=== PATIENT | male | born 1940 | race Hispanic/Latino ===

== ENCOUNTER 2018-07-03 07:53 | Inpatient (IN) | payer MEDICARE ==
[~2018-07-03] VITALS: Ht 175.3 cm; Wt 107.3 kg
[~2018-07-03 07:53] MED LIST: DABI150C PO; DILT240C94 PO; FURO20TA4 PO; GABA-531 PO; METO50TA18 PO; OMEP40CA37 PO; TAMS0.4C32 PO
[2018-07-03 08:14] LABS: BASOPHILS % (AUTO) 0.9 % (0.0-5.0); EOSINOPHILS % (AUTO) 1.8 % (0.0-8.0); LYMPHOCYTES % (AUTO) 11.7 % (21.0-51.0); MEAN CORPUSCULAR HEMOGLOBIN 26.6 pg (27.0-33.0); MEAN CORPUSCULAR HGB CONC 32.6 g/dL (32.0-36.0); MEAN CORPUSCULAR VOLUME 81.6 fL (79-99); MONOCYTES % (AUTO) 3.8 % (3.0-13.0); NEUTROPHILS % (AUTO) 81.8 % (40.0-77.0); NUCLEATED RED BLOOD CELLS 0.1 % (0.0-0.19); PLATELET COUNT (AUTO) 274 K/uL (130-400); RED BLOOD CELL COUNT(AUTO) 3.93 MIL/uL (4.50-6.20); RED CELL DISTRIBUTION WIDTH 16.3 % (11.0-15.5); WHITE BLOOD COUNT (AUTO) 8.7 K/uL (4.8-10.8)
[2018-07-03 08:25] LABS: POTASSIUM 3.7 mmol/L (3.5-5.1)
[2018-07-03 08:27] LABS: INR 1.14 (0.85-1.15); PROTHROMBIN TIME 11.9 SEC (9.6-11.6)
[2018-07-03 08:30] LABS: BILIRUBIN,TOTAL 0.6 mg/dL (0.2-1.0)
[2018-07-03 08:43] LABS: B-TYPE NATRIURETIC PEPTIDE 406 pg/mL (0-100)
[2018-07-03 08:57] LABS: APPEARANCE,URINE Clear (CLEAR); BILIRUBIN,URINE Negative (NEGATIVE); COLOR,URINE Yellow (YELLOW); GLUCOSE, URINE (UA) Negative (NEGATIVE); KETONES,URINE Negative (NEGATIVE); LEUKOCYTE ESTERASE ,URINE Trace (NEGATIVE); NITRATE,URINE Negative (NEGATIVE); OCCULT BLOOD,URINE Trace (NEGATIVE); PROTEIN,URINE Trace (NEGATIVE)
[2018-07-03 09:47] LABS: BACTERIA,URINE Rare /HPF (None Seen); HYALINE CASTS, URINE 0-1 /LPF (0-1 /LPF); MUCUS,URINE Rare LPF (None Seen); SQUAMOUS EPITHELIAL CELL,UR Rare /HPF (0-2); WBC,URINE 0-1 /HPF (0-1)
[2018-07-03 11:50] VITALS: BP 140/89
[2018-07-03] MEDS ORDERED: FUROSEMIDE 10 MG/ML 2ML VIAL IVP SCH (13:00)
[2018-07-03] MEDS ORDERED: POTA-79 PO (14:56)
[2018-07-03] MEDS ORDERED: MEGE40TA2 PO (14:56)
[2018-07-03] MEDS ORDERED: TRAM50TA4 PO (14:56)
[2018-07-03] MEDS ORDERED: CEFT1PIG6 IV (14:56)
[2018-07-03] MEDS ORDERED: SIME80TA12 PO (14:56)
[2018-07-03] MEDS ORDERED: VANC750F2 IV (14:56)
[2018-07-03 16:00] VITALS: BP 149/80
[2018-07-03] MEDS ORDERED: FUROSEMIDE 20 MG TABLET PO SCH (16:30)
[2018-07-03] MEDS ORDERED: FUROSEMIDE 10 MG/ML 2ML VIAL ONE (16:40)
[2018-07-03] MEDS ORDERED: GABAPENTIN 300 MG CAPSULE ONE (16:41)
[2018-07-03] MEDS ORDERED: DILTIAZEM HCL 120 MG CAP.SR.24H PO ONE (16:41)
[2018-07-03] MEDS ORDERED: SOD CHLORIDE IV SCH (16:45)
[2018-07-03] MEDS ORDERED: SIMETHICONE 80 MG TAB.CHEW PO PRN (16:45)
[2018-07-03] MEDS ORDERED: [UNRECOGNIZED DRUG - OTHER] IV SCH (16:45)
[2018-07-03] MEDS ORDERED: VANCOMYCIN IV SCH (16:45)
[2018-07-03] MEDS: FUROSEMIDE 10 MG/ML 2ML VIAL IV SCH (16:45)
[2018-07-03] MEDS ORDERED: COMPOUND IV REFRIGERATED 1 EACH IVSOLN MISC PRN (17:15)
[2018-07-03] MEDS: VANCOMYCIN 750MG + NS 250 ML IV SCH ×2 (19:14)
[2018-07-03] MEDS: CEFTAZIDIME PENTAHYDRATE 1 GM/VIAL IVP SCH (19:14)
[2018-07-03 19:55] VITALS: BP 145/90
[2018-07-03] MEDS: METOPROLOL TARTRATE 50 MG TAB PO SCH (21:22)
[2018-07-03] MEDS: GABAPENTIN 300 MG CAPSULE PO SCH (21:22)
[2018-07-03] MEDS: DABIGATRAN ETEXILATE MESYLATE 150 MG CAPSULE PO SCH (21:22)
[2018-07-03] MEDS ORDERED: ONDANSETRON HCL MDV 20ML 2 MG/ML VIAL IVP PRN (21:30)
[2018-07-03] MEDS ORDERED: ONDANSETRON HCL 4 MG/2 ML VIAL ONE (21:33)
[2018-07-03] MEDS ORDERED: VANCOMYCIN PROTOCOL PER PHARMACY IV SCH (22:30)
[2018-07-03] MEDS ORDERED: LORAZEPAM 0.5 MG TABLET PO PRN (22:30)
[2018-07-03 23:00] VITALS: BP 99/65
[2018-07-04] MEDS: CEFTAZIDIME PENTAHYDRATE 1 GM/VIAL IVP SCH ×3 (01:33→17:02)
[2018-07-04 04:17] VITALS: BP 122/69
[2018-07-04] MEDS: FUROSEMIDE 10 MG/ML 2ML VIAL IV SCH ×2 (05:06→17:02)
[2018-07-04 05:42] LABS: BASOPHILS % (AUTO) 1.2 % (0.0-5.0); EOSINOPHILS % (AUTO) 3.6 % (0.0-8.0); LYMPHOCYTES % (AUTO) 18.4 % (21.0-51.0); MEAN CORPUSCULAR HEMOGLOBIN 26.3 pg (27.0-33.0); MEAN CORPUSCULAR HGB CONC 32.6 g/dL (32.0-36.0); MEAN CORPUSCULAR VOLUME 80.6 fL (79-99); MONOCYTES % (AUTO) 5.6 % (3.0-13.0); NEUTROPHILS % (AUTO) 71.2 % (40.0-77.0); PLATELET COUNT (AUTO) 255 K/uL (130-400); RED BLOOD CELL COUNT(AUTO) 3.85 MIL/uL (4.50-6.20); RED CELL DISTRIBUTION WIDTH 16.1 % (11.0-15.5); WHITE BLOOD COUNT (AUTO) 6.6 K/uL (4.8-10.8)
[2018-07-04 05:51] LABS: POTASSIUM 3.5 mmol/L (3.5-5.1)
[2018-07-04] MEDS: VANCOMYCIN 750MG + NS 250 ML IV SCH ×2 (06:17)
[2018-07-04 07:00] VITALS: BP 127/92
[2018-07-04] MEDS ORDERED: COMPOUND IV REFRIGERATED 1 EACH IVSOLN MISC PRN (07:00)
[2018-07-04] MEDS: MEGESTROL ACETATE 40 MG PO SCH (09:00)
[2018-07-04] MEDS ORDERED: ALTEPLASE 2 MG/2 ML IVCATH SCH (09:00)
[2018-07-04] MEDS: PANTOPRAZOLE SODIUM 40 MG TABLET.DR PO SCH (09:03)
[2018-07-04] MEDS: GABAPENTIN 300 MG CAPSULE PO SCH ×3 (09:03→22:06)
[2018-07-04] MEDS: POTASSIUM CHLORIDE 20 MEQ ERTAB PO SCH (09:04)
[2018-07-04] MEDS: DILTIAZEM HCL 120 MG CAP.SR.24H PO SCH (09:05)
[2018-07-04] MEDS: TRAMADOL HCL 50 MG TABLET PO PRN (09:09)
[2018-07-04] MEDS: TAMSULOSIN HCL 0.4 MG CAP.ER.24H PO SCH (09:09)
[2018-07-04] MEDS: METOPROLOL TARTRATE 50 MG TAB PO SCH ×2 (09:10→22:06)
[2018-07-04] MEDS: DABIGATRAN ETEXILATE MESYLATE 150 MG CAPSULE PO SCH ×2 (09:11→22:06)
[2018-07-04] MEDS: VANCOMYCIN 1.5 GM in SODIUM CHLORIDE 0.9% 250 ML IV SCH ×2 (09:22→22:06)
[2018-07-04 11:00] VITALS: BP 103/60
[2018-07-04 16:00] VITALS: BP 107/71
[2018-07-04] MEDS ORDERED: POTASSIUM CHLORIDE 10% ELIXIR 20 MEQ/15 ML UDCUP PO PRN (17:00)
[2018-07-04] MEDS ORDERED: POTASSIUM CHLORIDE 20MEQ/100ML 100 ML IV PRN (17:00)
[2018-07-04] MEDS ORDERED: LIDOCAINE HCL-MPF 1% 2ML VIAL IVP PRN (17:00)
[2018-07-04] MEDS: POTASSIUM CHLORIDE 20 MEQ ERTAB PO PRN (18:50)
[2018-07-04 19:00] VITALS: BP 104/73
[2018-07-05] VITALS: BP 115/86
[2018-07-05] MEDS: CEFTAZIDIME PENTAHYDRATE 1 GM/VIAL IVP SCH ×3 (00:17→17:54)
[2018-07-05 04:00] VITALS: BP 105/75
[2018-07-05] MEDS: FUROSEMIDE 10 MG/ML 2ML VIAL IV SCH ×2 (04:27→17:54)
[2018-07-05 07:00] VITALS: BP 120/75
[2018-07-05] MEDS: MEGESTROL ACETATE 40 MG PO SCH (09:00)
[2018-07-05] MEDS: DILTIAZEM HCL 120 MG CAP.SR.24H PO SCH (09:35)
[2018-07-05] MEDS: PANTOPRAZOLE SODIUM 40 MG TABLET.DR PO SCH (09:35)
[2018-07-05] MEDS: TAMSULOSIN HCL 0.4 MG CAP.ER.24H PO SCH (09:35)
[2018-07-05] MEDS: GABAPENTIN 300 MG CAPSULE PO SCH ×3 (09:35→20:15)
[2018-07-05] MEDS: METOPROLOL TARTRATE 50 MG TAB PO SCH ×2 (09:35→20:15)
[2018-07-05] MEDS: POTASSIUM CHLORIDE 20 MEQ ERTAB PO SCH (09:37)
[2018-07-05] MEDS: VANCOMYCIN 1.5 GM in SODIUM CHLORIDE 0.9% 250 ML IV SCH ×2 (09:41→21:00)
[2018-07-05 11:00] VITALS: BP 123/77
[2018-07-05] MEDS: DABIGATRAN ETEXILATE MESYLATE 150 MG CAPSULE PO SCH ×2 (13:01→20:14)
[2018-07-05 16:00] VITALS: BP 119/66
[2018-07-05 19:56] VITALS: BP 114/74
[2018-07-05] MEDS ORDERED: LACT10SO9 PO (22:44)
[2018-07-05] MEDS ORDERED: SIME80TA12 PO (22:44)
[2018-07-05] MEDS ORDERED: BISA10S PR (22:44)
[2018-07-05] MEDS ORDERED: MOM30 PO (22:44)
[2018-07-05] MEDS ORDERED: LACTULOSE 20 GM/30 ML UDCUP PO PRN (22:45)
[2018-07-05] MEDS ORDERED: MAGNESIUM HYDROXIDE 30 ML/UDCUP PO PRN (22:45)
[2018-07-05] MEDS ORDERED: BISACODYL 10 MG SUPP.RECT RC PRN (22:45)
[2018-07-05] MEDS ORDERED: SIMETHICONE 80 MG TAB.CHEW PO PRN (22:45)
[2018-07-06] VITALS: BP 122/80
[2018-07-06] MEDS: CEFTAZIDIME PENTAHYDRATE 1 GM/VIAL IVP SCH ×3 (00:22→17:03)
[2018-07-06 04:00] VITALS: BP 118/73
[2018-07-06] MEDS: FUROSEMIDE 10 MG/ML 2ML VIAL IV SCH ×2 (04:52→17:03)
[2018-07-06 08:41] VITALS: BP 124/76
[2018-07-06] MEDS: MEGESTROL ACETATE 40 MG PO SCH (09:00)
[2018-07-06] MEDS: DABIGATRAN ETEXILATE MESYLATE 150 MG CAPSULE PO SCH ×2 (10:17→21:04)
[2018-07-06] MEDS: TRAMADOL HCL 50 MG TABLET PO PRN (10:17)
[2018-07-06] MEDS: PANTOPRAZOLE SODIUM 40 MG TABLET.DR PO SCH (10:18)
[2018-07-06] MEDS: TAMSULOSIN HCL 0.4 MG CAP.ER.24H PO SCH (10:18)
[2018-07-06] MEDS: POTASSIUM CHLORIDE 20 MEQ ERTAB PO SCH (10:19)
[2018-07-06] MEDS: GABAPENTIN 300 MG CAPSULE PO SCH ×3 (10:19→21:05)
[2018-07-06] MEDS: METOPROLOL TARTRATE 50 MG TAB PO SCH ×2 (10:20→21:05)
[2018-07-06] MEDS: DILTIAZEM HCL 120 MG CAP.SR.24H PO SCH (10:20)
[2018-07-06] MEDS: VANCOMYCIN 1.25 GM in SODIUM CHLORIDE 0.9% 250 ML IV SCH ×2 (10:22→21:05)
[2018-07-06 12:07] VITALS: BP 114/72
[2018-07-06 16:23] VITALS: BP 119/82
[2018-07-06 19:57] VITALS: BP 116/76
[2018-07-07] VITALS: BP 124/81
[2018-07-07] MEDS: CEFTAZIDIME PENTAHYDRATE 1 GM/VIAL IVP SCH ×3 (01:04→17:38)
[2018-07-07 03:45] VITALS: BP 123/76
[2018-07-07 07:41] LABS: HEMATOCRIT 31.6 % (42-54); MEAN CORPUSCULAR HEMOGLOBIN 26.1 pg (27.0-33.0); MEAN CORPUSCULAR HGB CONC 32.4 g/dL (32.0-36.0); MEAN CORPUSCULAR VOLUME 80.7 fL (79-99); PLATELET COUNT (AUTO) 255 K/uL (130-400); RED BLOOD CELL COUNT(AUTO) 3.92 MIL/uL (4.50-6.20); RED CELL DISTRIBUTION WIDTH 16.2 % (11.0-15.5); WHITE BLOOD COUNT (AUTO) 7.5 K/uL (4.8-10.8)
[2018-07-07] MEDS: MEGESTROL ACETATE 40 MG PO SCH (07:41)
[2018-07-07 07:47] LABS: CREATININE 1.2 mg/dL (0.5-1.5); POTASSIUM 3.5 mmol/L (3.5-5.1)
[2018-07-07 08:00] VITALS: BP 132/92
[2018-07-07] MEDS: TAMSULOSIN HCL 0.4 MG CAP.ER.24H PO SCH (08:43)
[2018-07-07] MEDS: DABIGATRAN ETEXILATE MESYLATE 150 MG CAPSULE PO SCH (08:43)
[2018-07-07] MEDS: POTASSIUM CHLORIDE 20 MEQ ERTAB PO SCH (08:44)
[2018-07-07] MEDS: DILTIAZEM HCL 120 MG CAP.SR.24H PO SCH (08:44)
[2018-07-07] MEDS: GABAPENTIN 300 MG CAPSULE PO SCH ×2 (08:44→14:48)
[2018-07-07] MEDS: METOPROLOL TARTRATE 50 MG TAB PO SCH (08:45)
[2018-07-07] MEDS: PANTOPRAZOLE SODIUM 40 MG TABLET.DR PO SCH (08:45)
[2018-07-07] MEDS: FUROSEMIDE 20 MG TABLET PO SCH ×2 (08:45→17:38)
[2018-07-07] MEDS: VANCOMYCIN 1.25 GM in SODIUM CHLORIDE 0.9% 250 ML IV SCH (08:49)
[2018-07-07] MEDS: POTASSIUM CHLORIDE 20 MEQ ERTAB PO PRN ×2 (10:25→12:11)
[2018-07-07 11:53] VITALS: BP 139/84
[2018-07-07 15:44] VITALS: BP 138/90
== END 2018-07-07 18:20 | DRG 551 ==
LOC: EDH 07:53 → EDHIP 10:00 → OBSVTOIN 10:00 → 3DH 11:20
PROVIDERS: ADMIT Internal Medicine; ATTEND Internal Medicine
DX: M46.44 Discitis, unspecified, thoracic region (principal); I50.43 Acute on chronic combined systolic (congestive) and diastolic (congestive) heart failure; J96.00 Acute respiratory failure, unspecified whether with hypoxia or hypercapnia; N39.0 Urinary tract infection, site not specified; N13.8 Other obstructive and reflux uropathy; M46.26 Osteomyelitis of vertebra, lumbar region; E66.9 Obesity, unspecified; F41.9 Anxiety disorder, unspecified; G89.29 Other chronic pain; I11.0 Hypertensive heart disease with heart failure; I48.0 Paroxysmal atrial fibrillation; I48.2 Chronic atrial fibrillation; N40.1 Benign prostatic hyperplasia with lower urinary tract symptoms; Z79.02 Long term (current) use of antithrombotics/antiplatelets; Z68.34 Body mass index [BMI] 34.0-34.9, adult
CPT/HCPCS: 36415; 71045; 80048; 80053; 80202; 81001; 83880; 84484; 85025; 85027; 85610; 85730; 93005; 97039; A4218; J0713; J1940; J2405; J2997; J3370; J7030

== ENCOUNTER 2019-03-02 13:46 | Observation (INO) | payer MEDICARE ==
[~2019-03-02] VITALS: Ht 157.5 cm; Wt 96.1 kg
[~2019-03-02 13:46] MED LIST changes: -GABA-531 PO; -OMEP40CA37 PO
[2019-03-02 15:08] LABS: BASOPHILS % (AUTO) 1.3 % (0.0-5.0); EOSINOPHILS % (AUTO) 4.9 % (0.0-8.0); HEMATOCRIT 33.7 % (42-54); LYMPHOCYTES % (AUTO) 23.4 % (21.0-51.0); MEAN CORPUSCULAR HEMOGLOBIN 26.2 pg (27.0-33.0); MEAN CORPUSCULAR HGB CONC 32.1 g/dL (32.0-36.0); MEAN CORPUSCULAR VOLUME 81.5 fL (79-99); MONOCYTES % (AUTO) 6.4 % (3.0-13.0); PLATELET COUNT (AUTO) 241 K/uL (130-400); RED BLOOD CELL COUNT(AUTO) 4.14 MIL/uL (4.50-6.20); RED CELL DISTRIBUTION WIDTH 15.7 % (11.0-15.5); WHITE BLOOD COUNT (AUTO) 6.4 K/uL (4.8-10.8)
[2019-03-02 15:13] LABS: APPEARANCE,URINE Clear (CLEAR); BILIRUBIN,URINE Negative (NEGATIVE); COLOR,URINE Yellow (YELLOW); GLUCOSE, URINE (UA) Negative (NEGATIVE); KETONES,URINE Negative (NEGATIVE); LEUKOCYTE ESTERASE ,URINE Negative (NEGATIVE); NITRATE,URINE Negative (NEGATIVE); OCCULT BLOOD,URINE Nonhemolyzed Trace (NEGATIVE); PROTEIN,URINE Negative (NEGATIVE)
[2019-03-02 15:18] LABS: CREATININE 1.3 mg/dL (0.5-1.5); POTASSIUM 3.8 mmol/L (3.5-5.1)
[2019-03-02 15:23] LABS: ALBUMIN 3.4 g/dL (3.5-5.0); BILIRUBIN,TOTAL 0.6 mg/dL (0.2-1.0); TOTAL PROTEIN, SERUM 6.8 g/dL (6.0-8.3)
[2019-03-02 15:33] LABS: B-TYPE NATRIURETIC PEPTIDE 305 pg/mL (0-100)
[2019-03-02 16:08] LABS: RBC,URINE 0-1 /HPF (0-1); WBC,URINE 0-1 /HPF (0-1)
[2019-03-02 16:09] LABS: BACTERIA,URINE Rare /HPF (None Seen); HYALINE CASTS, URINE 0-1 /LPF (0-1 /LPF); MUCUS,URINE Rare LPF (None Seen); SQUAMOUS EPITHELIAL CELL,UR Rare /HPF (0-2)
[2019-03-02] MEDS ORDERED: NITROGLYCERIN 1GM/1 INCH PACKET TD ONE (16:59)
[2019-03-02] MEDS: FUROSEMIDE 10 MG/ML 4ML VIAL IVP SCH (17:45)
[2019-03-02] MEDS ORDERED: FUROSEMIDE 10 MG/ML 4ML VIAL ONE (17:54)
[2019-03-02 22:18] VITALS: BP 139/77
[2019-03-02] MEDS ORDERED: OMEP40CA37 PO (23:18)
[2019-03-02] MEDS ORDERED: POTA20TA82 PO (23:18)
[2019-03-02] MEDS ORDERED: DILT240C94 PO (23:18)
[2019-03-02] MEDS ORDERED: HYDR-4060 PO (23:18)
[2019-03-02] MEDS ORDERED: VENL-62 PO (23:18)
[2019-03-02] MEDS ORDERED: LISI40TA4 PO (23:18)
[2019-03-02] MEDS ORDERED: FURO40TA5 PO (23:18)
[2019-03-03] MEDS: FUROSEMIDE 10 MG/ML 4ML VIAL IVP SCH ×3 (02:02→17:02)
[2019-03-03 03:23] VITALS: BP 111/75
[2019-03-03 04:25] LABS: HEMATOCRIT 33.4 % (42-54); MEAN CORPUSCULAR HEMOGLOBIN 27.4 pg (27.0-33.0); MEAN CORPUSCULAR HGB CONC 33.6 g/dL (32.0-36.0); MEAN CORPUSCULAR VOLUME 81.5 fL (79-99); PLATELET COUNT (AUTO) 193 K/uL (130-400); RED BLOOD CELL COUNT(AUTO) 4.09 MIL/uL (4.50-6.20); RED CELL DISTRIBUTION WIDTH 15.6 % (11.0-15.5); WHITE BLOOD COUNT (AUTO) 5.5 K/uL (4.8-10.8)
[2019-03-03 04:44] LABS: ALBUMIN 3.2 g/dL (3.5-5.0); BILIRUBIN,TOTAL 0.6 mg/dL (0.2-1.0); CREATININE 1.1 mg/dL (0.5-1.5); POTASSIUM 3.4 mmol/L (3.5-5.1); TOTAL PROTEIN, SERUM 6.5 g/dL (6.0-8.3)
[2019-03-03 04:46] LABS: B-TYPE NATRIURETIC PEPTIDE 279 pg/mL (0-100)
[2019-03-03] MEDS ORDERED: LIDOCAINE HCL-MPF 1% 2ML VIAL IVP PRN (05:15)
[2019-03-03] MEDS ORDERED: POTASSIUM CHLORIDE 10% ELIXIR 20 MEQ/15 ML UDCUP PO PRN (05:15)
[2019-03-03] MEDS ORDERED: POTASSIUM CHLORIDE 20MEQ/100ML 100 ML IV PRN (05:15)
[2019-03-03 05:17] LABS: MAGNESIUM 1.9 mg/dL (1.80-2.40)
[2019-03-03] MEDS ORDERED: MAGNESIUM 2GM PREMIX 50ML 50 ML IV ONE (05:42)
[2019-03-03] MEDS ORDERED: MAGNESIUM 2GM PREMIX 50ML 50 ML IV PRN (05:45)
[2019-03-03] MEDS: POTASSIUM CHLORIDE 20 MEQ ERTAB PO PRN ×2 (05:48→08:09)
[2019-03-03 07:00] VITALS: BP 132/82
[2019-03-03 11:00] VITALS: BP 102/73
[2019-03-03 16:00] VITALS: BP 123/86
--- NOTE | 2019-03-03 17:12 | NUR ---
DC PLAN VISITED WITH PATIENT. PATIENT LIVES WITH SPOUSE. INDEPENDENT ABLE TO PERFORM MOST ADL'S. PROVIDER NOT SURE HOW MANY HRS. FEELS SAFE TO RETURN HOME. Addendum: 03/03/19 at 1715 by GHANSHYAM ESPINOZA RN CM Amended: Links added.
[2019-03-03 19:00] VITALS: BP 105/61
[2019-03-03] MEDS ORDERED: HYDROCODONE/ACETAMINOPHEN 5/325 MG TAB PO PRN (19:30)
[2019-03-03] MEDS: DABIGATRAN ETEXILATE MESYLATE 150 MG CAPSULE PO SCH (19:58)
[2019-03-03] MEDS: DILTIAZEM HCL 120 MG CAP.SR.24H PO SCH (19:58)
[2019-03-03] MEDS: METOPROLOL TARTRATE 50 MG TAB PO SCH (19:58)
--- NOTE | 2019-03-03 22:29 | NUR ---
DR. HUTCHISON IN PT ROOM. NEW ORDER TO DECREASE LASIX FROM Q8 TO Q12HRS.
[2019-03-03 23:00] VITALS: BP 111/66
[2019-03-04 03:00] VITALS: BP 120/82
[2019-03-04 07:00] VITALS: BP 137/89
[2019-03-04] MEDS ORDERED: FUROSEMIDE 10 MG/ML 4ML VIAL ONE (07:40)
[2019-03-04] MEDS: TAMSULOSIN HCL 0.4 MG CAP.ER.24H PO SCH (07:45)
[2019-03-04] MEDS: FUROSEMIDE 10 MG/ML 4ML VIAL IVP SCH ×2 (07:45→19:56)
[2019-03-04] MEDS: POTASSIUM CHLORIDE 20 MEQ ERTAB PO SCH (07:46)
[2019-03-04] MEDS: METOPROLOL TARTRATE 50 MG TAB PO SCH ×2 (07:46→19:56)
[2019-03-04] MEDS: PANTOPRAZOLE SODIUM 40 MG TABLET.DR PO SCH (07:46)
[2019-03-04] MEDS: LISINOPRIL 40 MG TABLET PO SCH (07:46)
[2019-03-04] MEDS: DABIGATRAN ETEXILATE MESYLATE 150 MG CAPSULE PO SCH ×2 (07:47→19:55)
[2019-03-04] MEDS: VENLAFAXINE HCL XR 37.5 MG CAP PO SCH (07:47)
[2019-03-04 11:00] VITALS: BP 120/58
[2019-03-04 15:46] VITALS: BP 109/57
[2019-03-04 19:00] VITALS: BP 123/75
[2019-03-04] MEDS: POTASSIUM CHLORIDE 20 MEQ ERTAB PO PRN (19:55)
[2019-03-04] MEDS: DILTIAZEM HCL 120 MG CAP.SR.24H PO SCH (19:56)
--- NOTE | 2019-03-04 20:45 | NUR ---
DR. HUTCHISON DOING ROUNDS. STATES TO DISCHARGE PT IN THE AM. CHANGE LASIX FROM IV TO PO 20 MG BID.
[2019-03-04 23:00] VITALS: BP 118/76
[2019-03-05 04:00] VITALS: BP 123/78
[2019-03-05 07:00] VITALS: BP 123/93
[2019-03-05] MEDS: FUROSEMIDE 40 MG TABLET PO SCH ×2 (08:25→16:46)
[2019-03-05] MEDS: TAMSULOSIN HCL 0.4 MG CAP.ER.24H PO SCH (08:25)
[2019-03-05] MEDS: POTASSIUM CHLORIDE 20 MEQ ERTAB PO SCH (08:26)
[2019-03-05] MEDS: DABIGATRAN ETEXILATE MESYLATE 150 MG CAPSULE PO SCH (08:26)
[2019-03-05] MEDS: VENLAFAXINE HCL XR 37.5 MG CAP PO SCH (08:26)
[2019-03-05] MEDS: METOPROLOL TARTRATE 50 MG TAB PO SCH (08:26)
[2019-03-05] MEDS: PANTOPRAZOLE SODIUM 40 MG TABLET.DR PO SCH (08:26)
[2019-03-05] MEDS: LISINOPRIL 40 MG TABLET PO SCH (08:27)
[2019-03-05 11:00] VITALS: BP 122/80
[2019-03-05 15:53] VITALS: BP 119/82
--- NOTE | 2019-03-05 17:00 | NUR ---
PIV AND TELEPACK REMOVED; PATIENT DISCHARGED HOME WITH NO NEW PRESCRIPTIONS; DAUGHTER AND PATIENT GIVEN DC INSTRUCTIONS; DAUGHTER SIGNED DC PAPERS, PATIENT STATES HE DOES NOT SIGN. PER DR HUTCHISON, PATIENT OK TO CONTINUE ALL HOME MEDICATIONS, EVEN CLARIFIED HOME DOSE OF LASIX 40MG BID. PATIENT OK TO RESUME ALL HOME MEDS. ALL QUESTIONS ANSWERED.
== END 2019-03-05 17:14 | disposition home or self-care (01) ==
LOC: EDH 13:46 → EDHIP 17:25 → 2DH 21:39
PROVIDERS: ADMIT Internal Medicine; ATTEND Internal Medicine
DX: I11.0 Hypertensive heart disease with heart failure (principal); I50.42 Chronic combined systolic (congestive) and diastolic (congestive) heart failure; I48.2 Chronic atrial fibrillation; R60.9 Edema, unspecified; M48.00 Spinal stenosis, site unspecified; Z79.899 Other long term (current) drug therapy; Z90.49 Acquired absence of other specified parts of digestive tract
CPT/HCPCS: 36415 ×2; 71046; 80053 ×2; 81001; 82550; 83735; 83880 ×2; 84484; 85025; 85027; 93005; 93970; 96374; 96376 ×2; 99284; G0378 ×72; J1940 ×6; J3475; 96375

== ENCOUNTER → 2019-06-09 | Outpatient (CLI) | payer MEDICARE ==
[~2019-06-09] MED LIST changes: -FURO20TA4 PO; +FURO40TA5 PO; +HYDR-4060 PO; +LISI40TA4 PO; +OMEP40CA37 PO; +POTA20TA82 PO; +VENL-62 PO
== END | disposition home or self-care (01) ==
LOC: RAH 11:04
PROVIDERS: ATTEND Family Medicine
DX: N28.1 Cyst of kidney, acquired (principal); N32.89 Other specified disorders of bladder
CPT/HCPCS: 76770

== ENCOUNTER → 2019-06-27 | Outpatient (CLI) | payer MEDICARE | END | disposition home or self-care (01) | LOC: RAH 13:20 | PROVIDERS: ATTEND Neuromusculoskeletal Medicine & OMM | DX: M53.2X4 Spinal instabilities, thoracic region (principal) | CPT/HCPCS: 78306; A9503 ==

== ENCOUNTER 2019-07-30 13:52 | Inpatient (IN) | payer MEDICARE ==
[~2019-07-30] VITALS: Ht 170.2 cm; Wt 95.8 kg
[~2019-07-30 13:52] MED LIST changes: +OMEP40CA13 PO; -OMEP40CA37 PO
[2019-07-30 14:12] LABS: BASOPHILS % (AUTO) 0.7 % (0.0-5.0); LYMPHOCYTES % (AUTO) 16.3 % (21.0-51.0); MEAN CORPUSCULAR HEMOGLOBIN 26.4 pg (27.0-33.0); MEAN CORPUSCULAR HGB CONC 31.9 g/dL (32.0-36.0); MEAN CORPUSCULAR VOLUME 82.8 fL (79-99); MONOCYTES % (AUTO) 6.4 % (3.0-13.0); NEUTROPHILS % (AUTO) 74.6 % (40.0-77.0); PLATELET COUNT (AUTO) 170 K/uL (130-400); RED BLOOD CELL COUNT(AUTO) 4.83 MIL/uL (4.50-6.20); RED CELL DISTRIBUTION WIDTH 17.5 % (11.0-15.5); WHITE BLOOD COUNT (AUTO) 6.4 K/uL (4.8-10.8)
[2019-07-30 14:21] LABS: INR 1.73 (0.85-1.15); PARTIAL THROMBOPLASTIN TIME 49.7 SEC (26.3-35.5); PROTHROMBIN TIME 17.4 SEC (9.6-11.6)
[2019-07-30 15:02] LABS: CREATININE 1.4 mg/dL (0.5-1.5); POTASSIUM 4.3 mmol/L (3.5-5.1)
[2019-07-30 15:06] LABS: ALBUMIN 3.3 g/dL (3.5-5.0); BILIRUBIN,TOTAL 0.7 mg/dL (0.2-1.0); TOTAL PROTEIN, SERUM 6.3 g/dL (6.0-8.3)
[2019-07-30] MEDS ORDERED: ONDANSETRON HCL 4 MG/2 ML VIAL ONE (16:06)
[2019-07-30] MEDS ORDERED: MORPHINE SULFATE 2 MG/ML 1ML SYG ONE (16:07)
[2019-07-30] MEDS ORDERED: NITROGLYCERIN 0.4 MG SL TAB SL PRN (17:45)
[2019-07-30] MEDS ORDERED: ACETAMINOPHEN 325 MG TAB PO PRN (17:45)
[2019-07-30] MEDS ORDERED: HYDROMORPHONE HCL 0.5 MG/0.5 ML ML IV PRN (17:45)
[2019-07-30] MEDS ORDERED: DIPHENHYDRAMINE HCL 25 MG CAPSULE PO PRN (17:45)
[2019-07-30] MEDS ORDERED: LACTULOSE 20 GM/30 ML UDCUP PO PRN (17:45)
[2019-07-30] MEDS ORDERED: ONDANSETRON HCL 4 MG/2 ML VIAL IV PRN (17:45)
[2019-07-30] MEDS ORDERED: MAG HYDROX/AL HYDROX/SIMETH ES 30 ML SUSP UDCUP PO PRN (17:45)
[2019-07-30] MEDS ORDERED: ACETAMINOPHEN-CODEINE 300/30MG TAB PO PRN (17:45)
[2019-07-30] MEDS ORDERED: FENTANYL 25 MCG/HR PATCH TD SCH (17:45)
[2019-07-30] MEDS ORDERED: GUAIFENESIN-DM 200/20 MG 10 ML PO PRN (17:45)
[2019-07-30 18:17] VITALS: BP 128/72
[2019-07-30] MEDS: IPRATROPIUM/ALBUTEROL SULFATE 3 ML SOLUTION IH SCH ×2 (18:57→23:37)
[2019-07-30 20:00] VITALS: BP 135/70
--- NOTE | 2019-07-30 20:00 | NUR ---
ROOM PT TRANSFERRED TO ROOM 418 FOR CLOSE MONITORING.
[2019-07-30] MEDS: DABIGATRAN ETEXILATE MESYLATE 150 MG CAPSULE PO SCH ×2 (21:00→21:41)
[2019-07-30] MEDS: BENZONATATE 100 MG CAPSULE PO SCH (21:08)
[2019-07-30] MEDS: FUROSEMIDE 40 MG TABLET PO SCH (21:08)
--- NOTE | 2019-07-30 21:08 | NUR ---
MEDS SHIFT ASSESSMENT DONE, PLEASE REFER TO CHART. CLAIMS OF PAINS ON HIS BACK. DUE MEDS ADMINISTERED, NORCO PO ADMINISTERED FOR PAINS. PT TOLERATED MEDS WELL. WILL RE-ASSESS PT. Addendum: 07/31/19 at 0001 by ERMELINDA BURNS RN RN Amended: Links added.
[2019-07-30] MEDS: SODIUM CHLORIDE 0.9% 1000ML 1,000 ML IV SCH (21:09)
[2019-07-30] MEDS: HYDROCODONE/ACETAMINOPHEN 5/325 MG TAB PO PRN (21:10)
[2019-07-30 23:46] VITALS: BP 150/90
--- NOTE | 2019-07-31 02:00 | NUR ---
ROUNDS PT RESTING WELL, FAIRLY ASLEEP WITH RESPIRATIONS EVEN AND UNLABORED. NO NOTED DISTRESS. KEPT UNDISTURBED FOR NOW. WILL MONITOR PT.
[2019-07-31 04:00] VITALS: BP 148/88
[2019-07-31] MEDS: IPRATROPIUM/ALBUTEROL SULFATE 3 ML SOLUTION IH SCH ×4 (04:55→23:24)
--- NOTE | 2019-07-31 05:10 | NUR ---
NOTE PCP IN AND ASSISTED PT TO USE URINAL. PT REQUESTED TO SIT ON THE SIDE OF THE BED FOR NOW. KEPT COMFORTABLE. CALL LIGHT WITHIN REACH. FOR MORE CARE.
[2019-07-31 06:17] LABS: BASOPHILS % (AUTO) 1.1 % (0.0-5.0); EOSINOPHILS % (AUTO) 2.6 % (0.0-8.0); HEMATOCRIT 41.5 % (42-54); LYMPHOCYTES % (AUTO) 29.6 % (21.0-51.0); MEAN CORPUSCULAR HEMOGLOBIN 27.2 pg (27.0-33.0); MEAN CORPUSCULAR HGB CONC 32.5 g/dL (32.0-36.0); MEAN CORPUSCULAR VOLUME 83.6 fL (79-99); MONOCYTES % (AUTO) 7.8 % (3.0-13.0); NEUTROPHILS % (AUTO) 58.9 % (40.0-77.0); NUCLEATED RED BLOOD CELLS 0.1 % (0.0-0.19); PLATELET COUNT (AUTO) 155 K/uL (130-400); RED BLOOD CELL COUNT(AUTO) 4.96 MIL/uL (4.50-6.20); RED CELL DISTRIBUTION WIDTH 17.2 % (11.0-15.5); WHITE BLOOD COUNT (AUTO) 6.5 K/uL (4.8-10.8)
[2019-07-31 06:27] LABS: CREATININE 1.2 mg/dL (0.5-1.5); POTASSIUM 3.6 mmol/L (3.5-5.1)
[2019-07-31 06:50] LABS: INR 1.42 (0.85-1.15); PROTHROMBIN TIME 14.4 SEC (9.6-11.6)
[2019-07-31 08:00] VITALS: BP 107/71
--- NOTE | 2019-07-31 08:16 | NUR ---
PAGED DR. RUEDA FOR CONSULT. NO ANSWER AT THIS TIME.
--- NOTE | 2019-07-31 08:18 | NUR ---
CALL RECEIVED FROM TOYIN SNIDER FOR DR. RUEDA. TO CONSULT [facility] CARMONA FOR CONSULT.
[2019-07-31] MEDS ORDERED: TAMSULOSIN HCL 0.4 MG CAP.ER.24H PO SCH ×2 (09:00→21:00)
[2019-07-31] MEDS: FUROSEMIDE 40 MG TABLET PO SCH ×2 (09:37→20:28)
[2019-07-31] MEDS: FAMOTIDINE 20MG TAB 20 MG TAB PO SCH (09:37)
[2019-07-31] MEDS: BENZONATATE 100 MG CAPSULE PO SCH ×3 (09:37→20:28)
[2019-07-31] MEDS: DABIGATRAN ETEXILATE MESYLATE 150 MG CAPSULE PO SCH ×2 (09:37→20:28)
[2019-07-31] MEDS: POTASSIUM CHLORIDE 20 MEQ ERTAB PO SCH (09:38)
[2019-07-31] MEDS: PANTOPRAZOLE SODIUM 40 MG TABLET.DR PO SCH (09:38)
[2019-07-31 11:54] VITALS: BP 117/88
[2019-07-31] MEDS: HYDROCODONE/ACETAMINOPHEN 5/325 MG TAB PO PRN (12:32)
--- NOTE | 2019-07-31 13:24 | NUR ---
INITIAL MET Kyra CHAN AT BEDSIDE ALONE, FRANCES LIVES WITH SPOUSE, WHO REQUIRES ASSISTANCE AND SON WHO IS HADICAPPED AND REQUIRES ASSISTANCE- TOTAL PROVIDER HOURS FOR SPOUSE AND PT IS 20 HRS, MORE HOURS FOR SON, ALL DME- RAMP, RW, SC, WRK, CANE, EVEN SO, UCH PAIN AND UNSTEADY ON HSI FEET- DAUGHTER DUNG TO PROVIDE TRANSPORT HOME BEEN SEEN BY FOR BACK PAIN IN PAST...STATS DOES NOT WANT THERPAY AT THE HOUSE, HOME TO SMALL, STATES WANTS THERAPY IN OUTPATIENT SETTING BUT CANNOT FIND ONE. WILL LET DR. Hernandez SET UP. CM TO FOLLOW AFTER NEURO AND PTX RECOMMENDATIONS- PATIENT MAY NEED IP PT AT SNF FOR A WEEK, VERY UNSTADY ON FEET, BIG FALL RISK Addendum: 07/31/19 at 1328 by ИРИНА GIBBS RN CM Amended: Links added.
--- NOTE | 2019-07-31 13:30 | NUR ---
SPOKE TO MELISSA SHEPHERD REGARDING CONSULT FOR DR. RUEDA. PER DR. RUEDA'S PA RAISA WRIGHT, THEY ARE NOT DIRECTOR OF NUCLEAR MEDICINE TODAY TO CONTACT [facility] CARMONA. [facility] CARMONA DOES NOT HAVE PRIVILEGES TO SEE PATIENT AT THIS HOSPITAL. NEW ORDERS RECEIVED TO CONSULT ON-CALL NEUROSURGEON DR. MENDOZA. SPOKE TO [facility] (DR. MENDOZA), STATED DR. MENDOZA WILL PROBABLY NOT BE ABLE TO SEE THE PATIENT TODAY. WILL HAVE TO SEE THE PATIENT TOMORROW. MELISSA ESPARZA NOTIFIED.
[2019-07-31 16:00] VITALS: BP 108/61
[2019-07-31 19:00] VITALS: BP_SYST 149; BP_SYST 154; BP_DIAS 102; BP_DIAS 111
--- NOTE | 2019-07-31 20:28 | NUR ---
MEDS AWAKENED PT FOR DUE MEDS, TOLERATED MEDS WELL. SHIFT ASSESSMENT DONE, PLEASE REFER TO CHART. POSITIONED COMFORTABLY IN BED. CALL LIGHT WITHIN REACH. WILL MONITOR PT. Addendum: 07/31/19 at 2137 by ERMELINDA BURNS RN RN Amended: Links added.
[2019-07-31] MEDS: SODIUM CHLORIDE 0.9% 1000ML 1,000 ML IV SCH (22:08)
[2019-08-01] VITALS: BP 162/94
--- NOTE | 2019-08-01 00:30 | NUR ---
WALK PT INSISTED TO WALK OUT OF THE ROOM. ABLE TO WALK WITH WALKER WITH MINIMUM ASSIST. PT WAS ASSISTED BACK TO ROOM SINCE TELE CUSTOMER SALES CONSULTANT IS CALLING THAT PT'S HR IS INCREASING TO THE 130'S AFIB. EXPLAINED TO PT THAT HR IS ELEVATED AND VERBALIZES UNDERSTANDING. PT REQUESTED TO SIT DOWN FOR NOW. KEPT COMFORTABLE IN CHAIR WITH CALL LIGHT WITHIN REACH.
[2019-08-01 00:37] VITALS: BP 119/68
--- NOTE | 2019-08-01 01:38 | NUR ---
MEDS PT INSISTED ON WALKING AROUND THE ROOM. CLAIMS THAT WALKING HELPS WITH HIS PAIN. PT REFUSES TO GO BACK IN BED. MEDICATED WITH NORCO PO. KEPT RESTED SITTING DOWN IN CHAIR. PT'S XX=[id number] AFIB. WILL RE-ASSESS PT.
[2019-08-01] MEDS: HYDROCODONE/ACETAMINOPHEN 5/325 MG TAB PO PRN (01:48)
[2019-08-01 04:00] VITALS: BP 122/83
--- NOTE | 2019-08-01 04:30 | NUR ---
SL PT UNABLE TO KEEP STILL IN BED NOR IN THE CHAIR. FREQUENTLY GETS UP AND WALK WITH HIS WALKER AROUND THE ROOM. PT DOES NOT CALL FOR STAFF TO HELP HIM AND PIV IS CONSTANTLY BEING PULLED ALMOST ACCIDENTALLY DISLODGED. SALINE PIV FOR NOW. WILL KEEP ON CLOSE WATCH.
[2019-08-01 06:09] LABS: HEMATOCRIT 42.1 % (42-54); MEAN CORPUSCULAR HEMOGLOBIN 27.4 pg (27.0-33.0); MEAN CORPUSCULAR HGB CONC 32.8 g/dL (32.0-36.0); MEAN CORPUSCULAR VOLUME 83.7 fL (79-99); PLATELET COUNT (AUTO) 170 K/uL (130-400); RED BLOOD CELL COUNT(AUTO) 5.03 MIL/uL (4.50-6.20); RED CELL DISTRIBUTION WIDTH 17.3 % (11.0-15.5); WHITE BLOOD COUNT (AUTO) 8.1 K/uL (4.8-10.8)
[2019-08-01] MEDS: IPRATROPIUM/ALBUTEROL SULFATE 3 ML SOLUTION IH SCH ×2 (06:12→11:10)
[2019-08-01 06:31] LABS: CREATININE 1.2 mg/dL (0.5-1.5); POTASSIUM 3.9 mmol/L (3.5-5.1)
[2019-08-01 08:00] VITALS: BP 122/59
[2019-08-01] MEDS: BENZONATATE 100 MG CAPSULE PO SCH (09:16)
[2019-08-01] MEDS: DABIGATRAN ETEXILATE MESYLATE 150 MG CAPSULE PO SCH (09:17)
[2019-08-01] MEDS: FAMOTIDINE 20MG TAB 20 MG TAB PO SCH (09:17)
[2019-08-01] MEDS: POTASSIUM CHLORIDE 20 MEQ ERTAB PO SCH (09:17)
[2019-08-01] MEDS: PANTOPRAZOLE SODIUM 40 MG TABLET.DR PO SCH (09:17)
[2019-08-01] MEDS: FUROSEMIDE 40 MG TABLET PO SCH (09:17)
--- NOTE | 2019-08-01 11:11 | NUR ---
DR. MENDOZA REVIEWED CHART, STATED NO INTERVENTION AT THIS TIME. THE COMPRESSION FX TO L1 AND L4 LOOK OLD. PATIENT S/P BACK SURGERY WITH DR. RUEDA IN 2019. DR. MENDOZA RECOMMENDS DR. RUEDA TO SEE PATIENT. SPOKE TO NIALL FROM DR. RUEDA'S OFFICE FOR CONSULT. PER NIALL, DR. RUEDA IS NOT TAKING ANY CONSULTS AT THIS TIME. PATIENT WILL NEED A REFERRAL FROM PRIMARY PHYSICIAN IN ORDER TO BE SEEN OUTPATIENT.
[2019-08-01 11:58] VITALS: BP 98/65
--- NOTE | 2019-08-01 15:17 | NUR ---
[facility] CONSULT PATIENT ASSESSED REQUESTED: PATIENT PRESENTS WITH ULCER TO LEFT LOWER LEG; [facility] RECOMMENDATIONS SUBMITTED. Addendum: 08/01/19 at 1518 by ERVIN MOLINA LVN LVN W Amended: Links added.
[2019-08-01] MEDS ORDERED: METOPROLOL TARTRATE 50 MG TAB PO SCH (21:00)
[2019-08-01] MEDS ORDERED: TAMSULOSIN HCL 0.4 MG CAP.ER.24H PO SCH (21:00)
[2019-08-01] MEDS ORDERED: DILTIAZEM HCL 120 MG CAP.SR.24H PO SCH (21:00)
[2019-08-02] MEDS ORDERED: LISINOPRIL 40 MG TABLET PO SCH (09:00)
== END 2019-08-01 16:15 | disposition home or self-care (01) | DRG 552 ==
LOC: EDH 13:52 → EDHIP 16:40 → 4DH 17:26 → 4CH 20:13
PROVIDERS: ADMIT Internal Medicine Critical Care Medicine; ATTEND Internal Medicine Critical Care Medicine
DX: S32.018A Other fracture of first lumbar vertebra, initial encounter for closed fracture (principal); S22.39XA Fracture of one rib, unspecified side, initial encounter for closed fracture; M54.6 Pain in thoracic spine; G89.29 Other chronic pain; I11.0 Hypertensive heart disease with heart failure; I48.91 Unspecified atrial fibrillation; I50.9 Heart failure, unspecified; R07.9 Chest pain, unspecified; W18.39XA Other fall on same level, initial encounter; N40.0 Benign prostatic hyperplasia without lower urinary tract symptoms; Z79.899 Other long term (current) drug therapy; Y93.89 Activity, other specified; Y99.8 Other external cause status; Y92.89 Other specified places as the place of occurrence of the external cause
CPT/HCPCS: 36415; 71045; 71250; 74176; 80048; 80053; 82550; 84484; 85025; 85027; 85610; 85730; 93005; 94640; 94664; G0378; J2405; J7030

== ENCOUNTER → 2019-08-08 | Outpatient (CLI) | payer MEDICARE ==
[~2019-08-08] MED LIST changes: +LIDOCAINE/PRILOCAINE CREAM 5GM TUBE TP ONE
[2019-08-08 13:43] VITALS: BP 94/65
== END | disposition home or self-care (01) ==
LOC: WHH 08:58
PROVIDERS: ATTEND Family Medicine
DX: I83.028 Varicose veins of left lower extremity with ulcer other part of lower leg (principal); L97.821 Non-pressure chronic ulcer of other part of left lower leg limited to breakdown of skin; I87.2 Venous insufficiency (chronic) (peripheral); I48.91 Unspecified atrial fibrillation; E78.5 Hyperlipidemia, unspecified; I11.0 Hypertensive heart disease with heart failure; I50.9 Heart failure, unspecified; G89.29 Other chronic pain; N40.0 Benign prostatic hyperplasia without lower urinary tract symptoms; Z79.899 Other long term (current) drug therapy
CPT/HCPCS: A6022; A6197; A6452; G0463; J3490

== ENCOUNTER 2020-02-09 13:02 | Emergency (ER) | payer MEDICARE ==
[~2020-02-09 13:02] MED LIST changes: -LIDOCAINE/PRILOCAINE CREAM 5GM TUBE TP ONE
[2020-02-09 14:14] LABS: BASOPHILS % (AUTO) 0.6 % (0.0-5.0); EOSINOPHILS % (AUTO) 1.9 % (0.0-8.0); HEMATOCRIT 39.3 % (42-54); LYMPHOCYTES % (AUTO) 22.3 % (21.0-51.0); MEAN CORPUSCULAR HEMOGLOBIN 27.4 pg (27.0-33.0); MEAN CORPUSCULAR HGB CONC 32.8 g/dL (32.0-36.0); MEAN CORPUSCULAR VOLUME 83.6 fL (79-99); MONOCYTES % (AUTO) 6.1 % (3.0-13.0); NEUTROPHILS % (AUTO) 68.8 % (40.0-77.0); PLATELET COUNT (AUTO) 187 K/uL (130-400); RED CELL DISTRIBUTION WIDTH 14.6 % (11.0-15.5); WHITE BLOOD COUNT (AUTO) 6.2 K/uL (4.8-10.8)
[2020-02-09] MEDS ORDERED: LORAZEPAM 2 MG/ML 1 ML VIAL ONE (14:15)
[2020-02-09 14:40] LABS: CREATININE 1.4 mg/dL (0.5-1.5); POTASSIUM 3.2 mmol/L (3.5-5.1)
[2020-02-09 14:45] LABS: ALBUMIN 3.2 g/dL (3.5-5.0); BILIRUBIN,DIRECT 0.2 mg/dL (0.0-0.3); BILIRUBIN,TOTAL 0.7 mg/dL (0.2-1.0); TOTAL PROTEIN, SERUM 6.7 g/dL (6.0-8.3)
[2020-02-09] MEDS ORDERED: POTASSIUM BICARB/CIT AC 25 MEQ TABLET.EFF ONE (16:21)
== END 2020-02-09 16:39 | disposition home or self-care (01) ==
LOC: EDH 13:02
DX: R42 Dizziness and giddiness (principal); I48.91 Unspecified atrial fibrillation; I50.9 Heart failure, unspecified; I10 Essential (primary) hypertension; Z88.9 Allergy status to unspecified drugs, medicaments and biological substances
CPT/HCPCS: 36415; 70450; 80048; 80076; 82550; 84484; 85025; 93005; 96374; 99285; J2060

== ENCOUNTER 2022-05-25 20:13 | Emergency (ER) | payer MEDICARE ==
[~2022-05-25 20:13] MED LIST changes: -LISI40TA4 PO; +LISI40TA9 PO; -OMEP40CA13 PO; +OMEP40CA21 PO; +POTA-202 PO; -POTA20TA82 PO
[2022-05-25 20:36] LABS: BASOPHILS % (AUTO) 0.8 % (0.0-5.0); EOSINOPHILS % (AUTO) 6.6 % (0.0-8.0); HEMATOCRIT 42.7 % (42-54); LYMPHOCYTES % (AUTO) 21.8 % (21.0-51.0); MEAN CORPUSCULAR HEMOGLOBIN 29.3 pg (27.0-33.0); MEAN CORPUSCULAR HGB CONC 33.5 g/dL (32.0-36.0); MEAN CORPUSCULAR VOLUME 87.5 fL (79-99); MONOCYTES % (AUTO) 8.7 % (3.0-13.0); NEUTROPHILS % (AUTO) 61.6 % (40.0-77.0); PLATELET COUNT (AUTO) 168 K/uL (130-400); RED BLOOD CELL COUNT(AUTO) 4.88 MIL/uL (4.50-6.20); WHITE BLOOD COUNT (AUTO) 8.3 K/uL (4.8-10.8)
[2022-05-25 20:44] LABS: APPEARANCE,URINE SL CLOUDY (CLEAR); BILIRUBIN,URINE SMALL (NEGATIVE); COLOR,URINE YELLOW (YELLOW); GLUCOSE, URINE (UA) NEGATIVE (NEGATIVE); KETONES,URINE 15 mg/dL (NEGATIVE); LEUKOCYTE ESTERASE ,URINE TRACE (NEGATIVE); NITRATE,URINE NEGATIVE (NEGATIVE); OCCULT BLOOD,URINE NEGATIVE (NEGATIVE); PH,URINE 5.5 (5.0-8.0); PROTEIN,URINE NEGATIVE (NEGATIVE); UROBILINOGEN,URINE 0.2 mg/dL (0.2-1.0)
[2022-05-25 20:45] LABS: CREATININE 2.5 mg/dL (0.5-1.5); POTASSIUM 4.3 mmol/L (3.5-5.1)
[2022-05-25 20:50] LABS: ALBUMIN 3.4 g/dL (3.5-5.0); TOTAL PROTEIN, SERUM 6.7 g/dL (6.0-8.3)
[2022-05-25 20:56] LABS: BACTERIA,URINE Few /HPF (None Seen); RBC,URINE 0-1 /HPF (0-1); SQUAMOUS EPITHELIAL CELL,UR Few /HPF (0-2)
[2022-05-25] MEDS ORDERED: 0.9% NACL 250ML 250 ML IV ONE ×2 (21:00→22:00)
[2022-05-25] MEDS ORDERED: 0.9% NACL 500ML IV.SOLN 500 ML IV ONE (23:30)
[2022-05-25] MEDS ORDERED: 0.9%NACL 1000ML 1,000 ML IV ONE (23:30)
[2022-05-26 06:45] VITALS: BP 108/51
== END 2022-05-26 07:22 | disposition home or self-care (01) ==
LOC: EDH 20:13
DX: I95.1 Orthostatic hypotension (principal); E86.0 Dehydration; Z20.822 Contact with and (suspected) exposure to COVID-19; E11.9 Type 2 diabetes mellitus without complications; I11.0 Hypertensive heart disease with heart failure; I50.9 Heart failure, unspecified; I48.91 Unspecified atrial fibrillation; Z79.01 Long term (current) use of anticoagulants; Z79.899 Other long term (current) drug therapy
CPT/HCPCS: 99285; 71045; 84484; 80053; 83880; 87635; 85025; 87040 ×2; 87804 ×2; 83605; 81001; 36415; 93005 ×2; 84145; C9803; J7050

== ENCOUNTER 2023-12-06 07:29 | Inpatient (IN) | payer MEDICARE ==
[~2023-12-06] VITALS: Ht 165.1 cm; Wt 122.0 kg
[2023-12-06] VITALS (21 sets, daily range): BP systolic 82–136; BP diastolic 50–87; PULSE 88–140; RESP 11–35; O2SAT 98
[~2023-12-06 07:29] MED LIST changes: +DILT240C81 PO; -DILT240C94 PO
[2023-12-06] MEDS: AMIODARONE 150MG VIAL 150 MG in DEXTROSE 5%-WATER 100 ML IV SCH (07:50)
[2023-12-06] MEDS ORDERED: AMIODARONE 900MG VIAL 900 MG in DEXTROSE 5%-WATER 500 ML IV SCH (08:00)
[2023-12-06] MEDS: NOREPINEPHRIN 4MG/NS 250ML 250 ML IV SCH (08:05)
[2023-12-06] MEDS: DILTIAZEM 50MG VIAL IV SCH (08:10)
[2023-12-06 08:14] LABS: BASOPHILS # (AUTO) 0.05 K/uL (0.00-0.20); BASOPHILS % (AUTO) 0.4 % (0.0-5.0); EOSINOPHILS # (AUTO) 0.01 K/uL (0.00-0.70); EOSINOPHILS % (AUTO) 0.1 % (0.0-8.0); HEMATOCRIT 53.1 % (42-54); IMMATURE GRANULOCYTE ABSOLUTE 0.06 K/uL (0-1); LYMPHOCYTES # (AUTO) 0.8 K/uL (1.0-4.8); LYMPHOCYTES % (AUTO) 6.9 % (21.0-51.0); MEAN CORPUSCULAR HEMOGLOBIN 28.5 pg (27.0-33.0); MEAN CORPUSCULAR HGB CONC 32.6 g/dL (32.0-36.0); MEAN CORPUSCULAR VOLUME 87.6 fL (79-99); MONOCYTES # (AUTO) 0.6 K/uL (0.1-1.0); MONOCYTES % (AUTO) 4.9 % (3.0-13.0); NEUTROPHILS # (AUTO) 10.4 K/uL (1.8-7.7); NEUTROPHILS % (AUTO) 87.2 % (40.0-77.0); PLATELET COUNT (AUTO) 160 K/uL (130-400); RED BLOOD CELL COUNT(AUTO) 6.06 MIL/uL (4.50-6.20); RED CELL DISTRIBUTION WIDTH 15.9 % (11.0-15.5)
[2023-12-06] MEDS: NOREPINEPHRIN 4MG/NS 250ML 250 ML IV ONE (08:16)
[2023-12-06] MEDS: AMIODARONE 150MG VIAL ONE (08:20)
[2023-12-06 08:26] LABS: INR 1.06 (0.85-1.15); PROTHROMBIN TIME 12.3 SEC (9.6-11.6)
[2023-12-06 08:27] LABS: PARTIAL THROMBOPLASTIN TIME 28.2 SEC (26.3-35.5)
[2023-12-06] MEDS ORDERED: AMIODARONE 360MG/200ML D5W(1MG/MIN) IV SCH (08:30)
[2023-12-06] MEDS ORDERED: AMIODARONE 540 MG/D5W 300ML (0.5MG/MIN) IV SCH (08:30)
[2023-12-06 08:35] LABS: ALBUMIN 3.3 g/dL (3.5-5.0); BILIRUBIN,TOTAL 1.8 mg/dL (0.2-1.0); CREATININE 1.9 mg/dL (0.5-1.5); POTASSIUM 4.4 mmol/L (3.5-5.1); TOTAL PROTEIN, SERUM 6.6 g/dL (6.0-8.3)
[2023-12-06] MEDS ORDERED: DAPA5TAB6 PO (09:13)
[2023-12-06] MEDS ORDERED: METO100T14 PO (09:13)
[2023-12-06] MEDS ORDERED: FURO20TA6 PO (09:13)
[2023-12-06] MEDS ORDERED: LEVO25CA4 PO (09:13)
[2023-12-06] MEDS ORDERED: APIX2.5T PO (09:13)
[2023-12-06] MEDS ORDERED: DAPA10TA PO (09:13)
[2023-12-06] MEDS ORDERED: LOPERAMIDE HCL 2 MG CAP PO PRN (12:00)
[2023-12-06] MEDS ORDERED: POTASSIUM CHLORIDE 20MEQ/100ML 100 ML IV PRN ×2 (12:00)
[2023-12-06] MEDS ORDERED: POLYETHYLENE GLYCOL 3350 17 GM POWD.PACK PO PRN (12:00)
[2023-12-06] MEDS ORDERED: HYDRALAZINE 25MG TABLET PO PRN (12:00)
[2023-12-06] MEDS ORDERED: KCL 20 MEQ ERTAB PO PRN (12:00)
[2023-12-06] MEDS ORDERED: GUAIFENESIN SUGAR-FREE 100 MG/5 ML UDCUP PO PRN (12:00)
[2023-12-06] MEDS ORDERED: MAG/ALUM/SIMETH 30 ML UDCUP PO PRN (12:00)
[2023-12-06] MEDS ORDERED: ONDANSETRON 4MG INJ IV PRN (12:00)
[2023-12-06] MEDS ORDERED: MAGNESIUM 2GM PREMIX 50ML 50 ML IV PRN (12:00)
[2023-12-06] MEDS ORDERED: GUAIFENESIN-DM 200/20 MG 10 ML PO PRN (12:00)
[2023-12-06] MEDS ORDERED: POTASSIUM CHLORIDE 10% ELIXIR 20 MEQ/15 ML UDCUP PO PRN (12:00)
[2023-12-06 13:12] LABS: APPEARANCE,URINE CLOUDY (CLEAR); BACTERIA,URINE MANY /HPF (None Seen); BILIRUBIN,URINE NEGATIVE (NEGATIVE); COLOR,URINE YELLOW (YELLOW); GLUCOSE, URINE (UA) >=1000 mg/dL (NEGATIVE); KETONES,URINE 5 mg/dL (NEGATIVE); LEUKOCYTE ESTERASE ,URINE 500 Leu/uL (NEGATIVE); MUCUS,URINE RARE LPF (None Seen); NITRATE,URINE NEGATIVE (NEGATIVE); OCCULT BLOOD,URINE SMALL (NEGATIVE); PROTEIN,URINE 50 mg/dL (NEGATIVE); SQUAMOUS EPITHELIAL CELL,UR RARE /HPF (0-2); TRANSITIONAL EPI CELLS,URINE RARE /HPF (None Seen); UROBILINOGEN,URINE 0.2 mg/dL (0.2-1.0); WBC CLUMP FEW /HPF (0-1); WBC,URINE 51-100 /HPF (0-1)
[2023-12-06] MEDS: ACETAMINOPHEN 325 MG TAB PO PRN (13:18)
[2023-12-06] MEDS ORDERED: NICARDIPINE 25MG INJ 100 MG in 0.9%NACL 100ML 60 ML IV SCH (14:30)
[2023-12-06] MEDS ORDERED: LEVETIRACETAM 500 MG/5 ML SD VIAL IV SCH (14:30)
[2023-12-06] MEDS: HUMAN PROTHROMBIN COMPLX(PCC) 500 UNIT KIT IV ONE (14:35)
[2023-12-06] MEDS: CEFTRIAXONE 2GM VIAL IVPB SCH (15:27)
[2023-12-06] MEDS: 0.9%NACL 1000ML 2,052 ML IV ONE (15:27)
[2023-12-06] MEDS: INSULIN HUMULIN R 100 UNIT/ML 3ML SQ SCH (16:30)
[2023-12-06] MEDS ORDERED: 0.9% NACL 500ML IV.SOLN 500 ML IV STA (20:21)
[2023-12-06] MEDS ORDERED: 0.9%NACL 1000ML 1,000 ML IV SCH (20:30)
[2023-12-06] MEDS: 0.9% NACL 500ML IV.SOLN 500 ML IV SCH (20:50)
[2023-12-06] MEDS: 0.9%NACL 1000ML 1,000 ML IV SCH (20:50)
[2023-12-06] MEDS: FAMOTIDINE 20MG VIAL IV SCH (21:21)
[2023-12-06] MEDS: LEVETIRACETAM 1,000 MG in 0.9%NACL 100ML 100 ML IV SCH (22:45)
[2023-12-07] VITALS (84 sets, daily range): BP systolic 83–139; BP diastolic 52–87; PULSE 90–137; RESP 11–44; O2SAT 94–98
[2023-12-07 05:21] LABS: BASOPHILS # (AUTO) 0.05 K/uL (0.00-0.20); BASOPHILS % (AUTO) 0.7 % (0.0-5.0); EOSINOPHILS # (AUTO) 0.03 K/uL (0.00-0.70); EOSINOPHILS % (AUTO) 0.4 % (0.0-8.0); HEMATOCRIT 43.6 % (42-54); IMMATURE GRANULOCYTE ABSOLUTE 0.04 K/uL (0-1); LYMPHOCYTES # (AUTO) 1.2 K/uL (1.0-4.8); MEAN CORPUSCULAR HEMOGLOBIN 28.4 pg (27.0-33.0); MEAN CORPUSCULAR HGB CONC 32.6 g/dL (32.0-36.0); MEAN CORPUSCULAR VOLUME 87.2 fL (79-99); MONOCYTES # (AUTO) 0.8 K/uL (0.1-1.0); MONOCYTES % (AUTO) 10.7 % (3.0-13.0); NEUTROPHILS # (AUTO) 5.4 K/uL (1.8-7.7); NEUTROPHILS % (AUTO) 71.7 % (40.0-77.0); PLATELET COUNT (AUTO) 133 K/uL (130-400); RED CELL DISTRIBUTION WIDTH 15.9 % (11.0-15.5); WHITE BLOOD COUNT (AUTO) 7.6 K/uL (4.8-10.8)
[2023-12-07 05:35] LABS: ALBUMIN 2.7 g/dL (3.5-5.0); BILIRUBIN,TOTAL 1.3 mg/dL (0.2-1.0); CREATININE 1.3 mg/dL (0.5-1.5); POTASSIUM 3.7 mmol/L (3.5-5.1); TOTAL PROTEIN, SERUM 5.6 g/dL (6.0-8.3)
[2023-12-07 07:12] LABS: ABG BASE EXCESS -4.4 mmol/L (-2.0-3.0); ABG HCO3 19.6 mmol/L (21.0-28.0); ABG OXYGEN SATURATION 95.1 % (95.0-99.0); ABG PCO2 33 mmHg (35-48); ABG PH 7.387 (7.35-7.450); VENT MODE, BG NC (ROOM AIR)
[2023-12-07] MEDS: METOPROLOL TARTRATE 50 MG TAB PO ONE (08:12)
[2023-12-07] MEDS ORDERED: IOHEXOL 350 MG/ML 100ML INFUS..BTL IV ONE (08:16)
[2023-12-07] MEDS ORDERED: IOHEXOL-350 75 ML VIAL IV ONE (09:15)
[2023-12-07] MEDS: ACETAMINOPHEN 325 MG TAB PO PRN (11:58)
[2023-12-07 14:32] LABS: THYROID STIMULATING HORMONE 2.24 uIU/mL (0.36-3.74)
[2023-12-07] MEDS: POLYETHYLENE GLYCOL 3350 17 GM POWD.PACK PO ONE (15:21)
[2023-12-07] MEDS: ZOLPIDEM TARTRATE 5 MG TAB PO PRN (20:47)
[2023-12-08] VITALS (38 sets, daily range): BP systolic 101–140; BP diastolic 68–90; PULSE 93–140; RESP 13–32; O2SAT 96–98
[2023-12-08 06:14] LABS: BASOPHILS # (AUTO) 0.06 K/uL (0.00-0.20); BASOPHILS % (AUTO) 0.7 % (0.0-5.0); EOSINOPHILS # (AUTO) 0.13 K/uL (0.00-0.70); EOSINOPHILS % (AUTO) 1.5 % (0.0-8.0); HEMATOCRIT 41.8 % (42-54); IMMATURE GRANULOCYTE ABSOLUTE 0.04 K/uL (0-1); LYMPHOCYTES # (AUTO) 1.4 K/uL (1.0-4.8); MEAN CORPUSCULAR HEMOGLOBIN 28.9 pg (27.0-33.0); MEAN CORPUSCULAR HGB CONC 32.1 g/dL (32.0-36.0); MEAN CORPUSCULAR VOLUME 90.1 fL (79-99); MONOCYTES # (AUTO) 0.7 K/uL (0.1-1.0); NEUTROPHILS # (AUTO) 6.2 K/uL (1.8-7.7); NEUTROPHILS % (AUTO) 73.3 % (40.0-77.0); PLATELET COUNT (AUTO) 122 K/uL (130-400); RED BLOOD CELL COUNT(AUTO) 4.64 MIL/uL (4.50-6.20); RED CELL DISTRIBUTION WIDTH 15.9 % (11.0-15.5); WHITE BLOOD COUNT (AUTO) 8.4 K/uL (4.8-10.8)
[2023-12-08] MEDS: LEVOTHYROXINE 25 MCG TABLET PO SCH (06:23)
[2023-12-08 06:39] LABS: ALBUMIN 2.6 g/dL (3.5-5.0); BILIRUBIN,TOTAL 0.8 mg/dL (0.2-1.0); CREATININE 1.1 mg/dL (0.5-1.5); POTASSIUM 4.1 mmol/L (3.5-5.1); TOTAL PROTEIN, SERUM 5.6 g/dL (6.0-8.3)
[2023-12-08] MEDS: POLYETHYLENE GLYCOL 3350 17 GM POWD.PACK PO SCH (07:31)
[2023-12-08] MEDS: TAMSULOSIN HCL 0.4 MG CAP.ER.24H PO SCH (07:31)
[2023-12-08] MEDS: METOPROLOL TARTRATE 25 MG TAB ONE (12:42)
[2023-12-08] MEDS: METOPROLOL TARTRATE 25 MG TAB PO SCH (12:55)
[2023-12-08] MEDS: LACTULOSE 20 GM/30 ML UDCUP PO PRN (19:38)
[2023-12-09] VITALS (63 sets, daily range): BP systolic 89–144; BP diastolic 55–102; PULSE 87–140; RESP 9–40; O2SAT 95–96
[2023-12-09 08:22] LABS: HEMATOCRIT 41.7 % (42-54); MEAN CORPUSCULAR HEMOGLOBIN 28.8 pg (27.0-33.0); MEAN CORPUSCULAR HGB CONC 30.9 g/dL (32.0-36.0); MEAN CORPUSCULAR VOLUME 93.1 fL (79-99); PLATELET COUNT (AUTO) 96 K/uL (130-400); RED BLOOD CELL COUNT(AUTO) 4.48 MIL/uL (4.50-6.20); RED CELL DISTRIBUTION WIDTH 15.9 % (11.0-15.5); WHITE BLOOD COUNT (AUTO) 9.5 K/uL (4.8-10.8)
[2023-12-09] MEDS: HYDROCORTISONE 1% CREAM 28G TP SCH ×2 (09:34→21:45)
[2023-12-09 12:01] LABS: CREATININE 1.1 mg/dL (0.5-1.5); POTASSIUM 4.4 mmol/L (3.5-5.1)
[2023-12-09] MEDS ORDERED: MIDAZOLAM HCL 1 MG/ML 2ML VIAL ONE ×2 (12:12→13:38)
[2023-12-09] MEDS ORDERED: FENTANYL CITRATE PF 50 MCG/1 ML 2ML VIAL ONE ×2 (12:12→13:39)
[2023-12-09] MEDS ORDERED: LIDOCAINE HCL 400MG/20ML VIAL ONE (12:28)
[2023-12-09] MEDS ORDERED: IODIXANOL 320 MG/ML 100 ML VIAL ONE (12:28)
[2023-12-09] MEDS ORDERED: SUCCINYLCHOLINE CHLORIDE 20 MG/ML 10 ML VIAL ONE (13:38)
[2023-12-09] MEDS ORDERED: DEXAMETHASONE SOD PHOSPHATE 10MG/ML 1ML VIAL ONE (13:38)
[2023-12-09] MEDS ORDERED: ONDANSETRON 4MG INJ ONE (13:38)
[2023-12-09] MEDS ORDERED: LIDOCAINE PF 100MG/5ML (2%) SYRINGE 5ML ONE (13:38)
[2023-12-09] MEDS ORDERED: NEOSTIGMINE METHYLSULFATE 1MG/ML IV ONE (13:38)
[2023-12-09] MEDS ORDERED: PROPOFOL 10 MG/ML 20ML VIAL IV ONE (13:38)
[2023-12-09] MEDS ORDERED: ROCURONIUM BROMIDE 10MG/1ML 5ML VL ONE (13:38)
[2023-12-09] MEDS ORDERED: GLYCOPYRROLATE 0.2 MG/ML 5 ML VIAL ONE (13:38)
[2023-12-09] MEDS ORDERED: ROPIVACAINE 0.5% 5MG/ML 30ML ONE (13:45)
[2023-12-09] MEDS ORDERED: ALBUMIN (HUMAN) 25% 50 ML IV ONE (13:46)
[2023-12-09] MEDS ORDERED: KETAMINE 50MG/ML SYRINGE 50 MG/ML DISP.SYRIN ONE (13:46)
[2023-12-09] MEDS ORDERED: PHENYLEPHRINE HCL 10 MG/ML 1ML VIAL IV ONE ×2 (15:12→15:48)
[2023-12-09] MEDS: MEPERIDINE-PF 25 MG/ML SYG ONE (17:18)
[2023-12-09 17:53] LABS: ABG BASE EXCESS -1.2 mmol/L (-2.0-3.0); ABG HCO3 24.3 mmol/L (21.0-28.0); ABG OXYGEN SATURATION 90.8 % (95.0-99.0); ABG PCO2 44 mmHg (35-48); ABG PH 7.363 (7.35-7.450); CARBON MONOXIDE 1.2; HHb 9.1; PO2, ARTERIAL BG 59.9 mmHg (83.0-108.0); VENT MODE, BG 2L NC (ROOM AIR)
[2023-12-09 18:08] LABS: HEMATOCRIT 44.5 % (42-54); MEAN CORPUSCULAR HEMOGLOBIN 28.4 pg (27.0-33.0); MEAN CORPUSCULAR HGB CONC 29.4 g/dL (32.0-36.0); MEAN CORPUSCULAR VOLUME 96.5 fL (79-99); RED BLOOD CELL COUNT(AUTO) 4.61 MIL/uL (4.50-6.20); RED CELL DISTRIBUTION WIDTH 15.9 % (11.0-15.5); WHITE BLOOD COUNT (AUTO) 11.9 K/uL (4.8-10.8)
[2023-12-09 18:16] LABS: CREATININE 0.9 mg/dL (0.5-1.5); POTASSIUM 4.6 mmol/L (3.5-5.1)
[2023-12-09 18:20] LABS: ALBUMIN 2.7 g/dL (3.5-5.0); BILIRUBIN,TOTAL 0.9 mg/dL (0.2-1.0); TOTAL PROTEIN, SERUM 5.9 g/dL (6.0-8.3)
[2023-12-09] MEDS: AMIODARONE 900MG VIAL 540 MG in DEXTROSE 5%-WATER 300 ML IV STA (18:36)
[2023-12-09] MEDS: AMIODARONE 900MG VIAL 150 MG in DEXTROSE 5%-WATER 100 ML IV SCH (19:00)
[2023-12-09] MEDS ORDERED: AMIODARONE 900MG VIAL 360 MG in DEXTROSE 5%-WATER 200 ML IV SCH (19:00)
[2023-12-09] MEDS ORDERED: METOPROLOL TARTRATE 25 MG TAB PO ONE (19:00)
[2023-12-09] MEDS: HYDROMORPHONE 0.5 MG SYG (0.5MG/0.5ML) IVP PRN (19:34)
[2023-12-09] MEDS: SUGAMMADEX SODIUM 200 MG/2 ML VIAL IV ONE (20:31)
[2023-12-09] MEDS: LACTATED RINGERS 1000ML 1,000 ML IV ONE (20:31)
[2023-12-09] MEDS: METOPROLOL TARTRATE 1 MG/ML 5ML VIAL IV ONE ×2 (20:33→20:34)
[2023-12-09] MEDS: METOPROLOL TARTRATE 50 MG TAB PO SCH (21:00)
[2023-12-09] MEDS: LEVETIRACETAM 500 MG TABLET PO SCH (21:43)
[2023-12-10] VITALS (42 sets, daily range): BP systolic 82–127; BP diastolic 45–97; PULSE 63–123; RESP 9–21; O2SAT 96–97
[2023-12-10 05:35] LABS: BASOPHILS # (AUTO) 0.01 K/uL (0.00-0.20); BASOPHILS % (AUTO) 0.1 % (0.0-5.0); HEMATOCRIT 41.4 % (42-54); IMMATURE GRANULOCYTE ABSOLUTE 0.05 K/uL (0-1); LYMPHOCYTES # (AUTO) 0.8 K/uL (1.0-4.8); LYMPHOCYTES % (AUTO) 8.6 % (21.0-51.0); MEAN CORPUSCULAR HEMOGLOBIN 29.3 pg (27.0-33.0); MEAN CORPUSCULAR HGB CONC 31.4 g/dL (32.0-36.0); MEAN CORPUSCULAR VOLUME 93.5 fL (79-99); MONOCYTES # (AUTO) 0.3 K/uL (0.1-1.0); MONOCYTES % (AUTO) 3.2 % (3.0-13.0); NEUTROPHILS # (AUTO) 7.9 K/uL (1.8-7.7); NEUTROPHILS % (AUTO) 87.5 % (40.0-77.0); PLATELET COUNT (AUTO) 90 K/uL (130-400); RED BLOOD CELL COUNT(AUTO) 4.43 MIL/uL (4.50-6.20); RED CELL DISTRIBUTION WIDTH 15.8 % (11.0-15.5)
[2023-12-10 05:40] LABS: ALBUMIN 2.5 g/dL (3.5-5.0); BILIRUBIN,TOTAL 1.3 mg/dL (0.2-1.0); POTASSIUM 5.5 mmol/L (3.5-5.1); TOTAL PROTEIN, SERUM 5.8 g/dL (6.0-8.3)
[2023-12-10 08:17] LABS: POTASSIUM 5.1 mmol/L (3.5-5.1)
[2023-12-10] MEDS: BACITRACIN 28.4 GM OINT TP SCH (17:30)
[2023-12-10] MEDS: NYSTATIN 15 GM POWDER TP SCH (21:15)
[2023-12-10] MEDS: DIPHENHYDRAMINE HCL 25 MG CAPSULE PO PRN (21:16)
[2023-12-11] VITALS (8 sets, daily range): BP systolic 115–127; BP diastolic 67–92; PULSE 61–106; RESP 18; O2SAT 97–98
[2023-12-11 05:07] LABS: BASOPHILS # (AUTO) 0.02 K/uL (0.00-0.20); BASOPHILS % (AUTO) 0.2 % (0.0-5.0); EOSINOPHILS # (AUTO) 0.14 K/uL (0.00-0.70); EOSINOPHILS % (AUTO) 1.6 % (0.0-8.0); HEMATOCRIT 38.7 % (42-54); IMMATURE GRANULOCYTE ABSOLUTE 0.06 K/uL (0-1); LYMPHOCYTES % (AUTO) 11.5 % (21.0-51.0); MEAN CORPUSCULAR HEMOGLOBIN 28.6 pg (27.0-33.0); MEAN CORPUSCULAR VOLUME 92.1 fL (79-99); MONOCYTES # (AUTO) 0.8 K/uL (0.1-1.0); MONOCYTES % (AUTO) 8.7 % (3.0-13.0); NEUTROPHILS # (AUTO) 6.9 K/uL (1.8-7.7); NEUTROPHILS % (AUTO) 77.3 % (40.0-77.0); PLATELET COUNT (AUTO) 122 K/uL (130-400); RED CELL DISTRIBUTION WIDTH 15.7 % (11.0-15.5); WHITE BLOOD COUNT (AUTO) 8.9 K/uL (4.8-10.8)
[2023-12-11 05:18] LABS: ALBUMIN 2.4 g/dL (3.5-5.0); CREATININE 1.1 mg/dL (0.5-1.5); POTASSIUM 4.4 mmol/L (3.5-5.1); TOTAL PROTEIN, SERUM 5.3 g/dL (6.0-8.3)
[2023-12-11] MEDS: ALPRAZOLAM 0.5 MG TABLET PO PRN (17:24)
[2023-12-12] VITALS (8 sets, daily range): BP systolic 104–130; BP diastolic 58–85; PULSE 90–121; RESP 18–20; O2SAT 100
[2023-12-12 04:11] LABS: BASOPHILS # (AUTO) 0.04 K/uL (0.00-0.20); BASOPHILS % (AUTO) 0.4 % (0.0-5.0); EOSINOPHILS % (AUTO) 3.4 % (0.0-8.0); HEMATOCRIT 36.5 % (42-54); LYMPHOCYTES # (AUTO) 1.1 K/uL (1.0-4.8); LYMPHOCYTES % (AUTO) 12.2 % (21.0-51.0); MEAN CORPUSCULAR HGB CONC 31.5 g/dL (32.0-36.0); MEAN CORPUSCULAR VOLUME 91.9 fL (79-99); MONOCYTES # (AUTO) 0.7 K/uL (0.1-1.0); MONOCYTES % (AUTO) 7.4 % (3.0-13.0); NEUTROPHILS # (AUTO) 6.8 K/uL (1.8-7.7); NEUTROPHILS % (AUTO) 75.5 % (40.0-77.0); PLATELET COUNT (AUTO) 98 K/uL (130-400); RED BLOOD CELL COUNT(AUTO) 3.97 MIL/uL (4.50-6.20); RED CELL DISTRIBUTION WIDTH 15.9 % (11.0-15.5)
[2023-12-12 04:27] LABS: ALBUMIN 2.3 g/dL (3.5-5.0); BILIRUBIN,TOTAL 1.1 mg/dL (0.2-1.0); CREATININE 0.9 mg/dL (0.5-1.5); POTASSIUM 4.2 mmol/L (3.5-5.1)
[2023-12-12] MEDS: DOCUSATE SODIUM 100 MG CAP PO PRN (08:48)
[2023-12-12] MEDS: FUROSEMIDE 20 MG TABLET PO SCH (19:20)
[2023-12-13 04:00] VITALS: BP 132/90; PULSE 60; RESP 20
[2023-12-13] MEDS: DiphenhydrAMINE HCL 50 MG/ML VIAL IV PRN (04:55)
[2023-12-13 08:00] VITALS: BP 114/78; PULSE 112; RESP 22; O2SAT 100
[2023-12-13 10:53] VITALS: PULSE 79; RESP 20; O2SAT 98
[2023-12-13 12:00] VITALS: BP 119/65; PULSE 85; RESP 22
[2023-12-13 12:12] LABS: ABG BASE EXCESS -3.7 mmol/L (-2.0-3.0); ABG HCO3 19.1 mmol/L (21.0-28.0); ABG OXYGEN SATURATION 97.4 % (95.0-99.0); ABG PCO2 29 mmHg (35-48); ABG PH 7.436 (7.35-7.450); DEVICE COMMENT RR TOMAS RN; PO2, ARTERIAL BG 91.9 mmHg (83.0-108.0); VENT MODE, BG NC (ROOM AIR)
[2023-12-13] MEDS ORDERED: LABETALOL 20MG VIAL IV PRN (13:00)
[2023-12-13] MEDS: LABETALOL 20MG VIAL IV ONE (14:43)
[2023-12-13] MEDS: LABETALOL 20MG SYG IV ONE (14:43)
[2023-12-13 16:00] VITALS: BP 111/64; PULSE 76; RESP 20
[2023-12-13 20:00] VITALS: BP 106/72; PULSE 70; RESP 18; O2SAT 96
[2023-12-13] MEDS ORDERED: IOHEXOL 350 MG/ML 100ML INFUS..BTL IV ONE (20:06)
[2023-12-13] MEDS: APIXABAN 5 MG TABLET PO SCH (20:17)
[2023-12-13 20:52] LABS: ABG BASE EXCESS 1.1 mmol/L (-2.0-3.0); ABG HCO3 24.7 mmol/L (21.0-28.0); ABG OXYGEN SATURATION 96.2 % (95.0-99.0); ABG PCO2 36 mmHg (35-48); ABG PH 7.451 (7.35-7.450); PO2, ARTERIAL BG 78.3 mmHg (83.0-108.0); VENT MODE, BG 3 L NC (ROOM AIR)
[2023-12-14] VITALS (7 sets, daily range): BP systolic 99–123; BP diastolic 61–79; PULSE 61–116; RESP 18–28; O2SAT 92–97
[2023-12-14] MEDS: MIDODRINE HCL 5 MG TABLET PO ONE (03:55)
[2023-12-14] MEDS: ALBUMIN (HUMAN) 25% 100 ML IV ONE (03:55)
[2023-12-14] MEDS: 0.9% NACL 500ML IV.SOLN 500 ML IV SCH (03:55)
[2023-12-14 05:32] LABS: BASOPHILS # (AUTO) 0.04 K/uL (0.00-0.20); BASOPHILS % (AUTO) 0.3 % (0.0-5.0); EOSINOPHILS # (AUTO) 0.19 K/uL (0.00-0.70); EOSINOPHILS % (AUTO) 1.6 % (0.0-8.0); HEMATOCRIT 34.1 % (42-54); IMMATURE GRANULOCYTE ABSOLUTE 0.17 K/uL (0-1); LYMPHOCYTES # (AUTO) 1.2 K/uL (1.0-4.8); LYMPHOCYTES % (AUTO) 9.6 % (21.0-51.0); MEAN CORPUSCULAR HEMOGLOBIN 28.6 pg (27.0-33.0); MEAN CORPUSCULAR HGB CONC 31.1 g/dL (32.0-36.0); MEAN CORPUSCULAR VOLUME 92.2 fL (79-99); NEUTROPHILS # (AUTO) 9.5 K/uL (1.8-7.7); NEUTROPHILS % (AUTO) 79.1 % (40.0-77.0); PLATELET COUNT (AUTO) 103 K/uL (130-400); RED CELL DISTRIBUTION WIDTH 16.4 % (11.0-15.5)
[2023-12-14 05:39] LABS: ALBUMIN 2.8 g/dL (3.5-5.0); BILIRUBIN,TOTAL 1.8 mg/dL (0.2-1.0); CREATININE 1.3 mg/dL (0.5-1.5); MAGNESIUM 2.2 mg/dL (1.80-2.40); POTASSIUM 4.7 mmol/L (3.5-5.1); TOTAL PROTEIN, SERUM 5.8 g/dL (6.0-8.3)
[2023-12-14 16:27] LABS: ABG BASE EXCESS -1.9 mmol/L (-2.0-3.0); ABG HCO3 21.5 mmol/L (21.0-28.0); ABG OXYGEN SATURATION 98.2 % (95.0-99.0); ABG PCO2 33 mmHg (35-48); ABG PH 7.432 (7.35-7.450); PO2, ARTERIAL BG 109.2 mmHg (83.0-108.0); VENT MODE, BG NC 5L (ROOM AIR)
[2023-12-14] MEDS: MIDODRINE HCL 5 MG TABLET PO SCH (20:10)
[2023-12-15] VITALS (7 sets, daily range): BP systolic 98–111; BP diastolic 68–87; PULSE 75–110; RESP 17–28; O2SAT 97–98
[2023-12-15 04:23] LABS: BASOPHILS # (AUTO) 0.04 K/uL (0.00-0.20); BASOPHILS % (AUTO) 0.3 % (0.0-5.0); EOSINOPHILS # (AUTO) 0.29 K/uL (0.00-0.70); EOSINOPHILS % (AUTO) 2.1 % (0.0-8.0); HEMATOCRIT 34.1 % (42-54); IMMATURE GRANULOCYTE ABSOLUTE 0.21 K/uL (0-1); LYMPHOCYTES # (AUTO) 1.1 K/uL (1.0-4.8); LYMPHOCYTES % (AUTO) 7.7 % (21.0-51.0); MEAN CORPUSCULAR HGB CONC 30.5 g/dL (32.0-36.0); MEAN CORPUSCULAR VOLUME 91.9 fL (79-99); MONOCYTES % (AUTO) 7.5 % (3.0-13.0); NEUTROPHILS # (AUTO) 11.2 K/uL (1.8-7.7); NEUTROPHILS % (AUTO) 80.9 % (40.0-77.0); PLATELET COUNT (AUTO) 122 K/uL (130-400); RED BLOOD CELL COUNT(AUTO) 3.71 MIL/uL (4.50-6.20); RED CELL DISTRIBUTION WIDTH 16.6 % (11.0-15.5); WHITE BLOOD COUNT (AUTO) 13.8 K/uL (4.8-10.8)
[2023-12-15 04:39] LABS: ALBUMIN 2.6 g/dL (3.5-5.0); BILIRUBIN,TOTAL 1.8 mg/dL (0.2-1.0); CREATININE 1.3 mg/dL (0.5-1.5); MAGNESIUM 2.3 mg/dL (1.80-2.40); POTASSIUM 4.5 mmol/L (3.5-5.1)
[2023-12-15] MEDS: METOPROLOL TARTRATE 50 MG TAB PO STA (11:27)
[2023-12-15] MEDS ORDERED: BACI30OI6 TP (16:01)
[2023-12-15] MEDS ORDERED: HYDR28.32 TP (16:01)
[2023-12-15] MEDS ORDERED: APIX5TAB PO (16:01)
[2023-12-15] MEDS ORDERED: Midodrine Hcl PO (16:01)
[2023-12-15] MEDS ORDERED: METOPROLOL TARTRATE 50 MG TAB PO SCH (21:00)
== END 2023-12-15 19:00 | DRG 853 ==
LOC: EDH 07:29 → EDHIP 11:10 → 2CH 18:40 → 4BH 12-10 10:12
PROVIDERS: ADMIT Internal Medicine Critical Care Medicine; ATTEND Internal Medicine Critical Care Medicine
PROC: 06H03DZ Insertion of Intraluminal Device into Inferior Vena Cava, Percutaneous Approach (ICD-10-PCS; 2023-12-09)
PROC: 0QS704Z Reposition Left Upper Femur with Internal Fixation Device, Open Approach (ICD-10-PCS; principal; 2023-12-09 14:41)
DX: A41.9 Sepsis, unspecified organism (principal); I26.99 Other pulmonary embolism without acute cor pulmonale; S72.142A Displaced intertrochanteric fracture of left femur, initial encounter for closed fracture; R65.21 Severe sepsis with septic shock; I62.01 Nontraumatic acute subdural hemorrhage; I13.0 Hypertensive heart and chronic kidney disease with heart failure and stage 1 through stage 4 chronic kidney disease, or unspecified chronic kidney disease; N30.00 Acute cystitis without hematuria; N17.9 Acute kidney failure, unspecified; I82.432 Acute embolism and thrombosis of left popliteal vein; I82.412 Acute embolism and thrombosis of left femoral vein; I50.30 Unspecified diastolic (congestive) heart failure; I48.91 Unspecified atrial fibrillation; N18.2 Chronic kidney disease, stage 2 (mild); N40.0 Benign prostatic hyperplasia without lower urinary tract symptoms; E78.5 Hyperlipidemia, unspecified; I87.2 Venous insufficiency (chronic) (peripheral); E11.22 Type 2 diabetes mellitus with diabetic chronic kidney disease; B96.1 Klebsiella pneumoniae [K. pneumoniae] as the cause of diseases classified elsewhere; E03.9 Hypothyroidism, unspecified; L30.4 Erythema intertrigo; W18.39XA Other fall on same level, initial encounter; S90.511A Abrasion, right ankle, initial encounter; Z79.01 Long term (current) use of anticoagulants; Z82.49 Family history of ischemic heart disease and other diseases of the circulatory system; Z83.3 Family history of diabetes mellitus; Z95.828 Presence of other vascular implants and grafts; Z79.899 Other long term (current) drug therapy; Y92.009 Unspecified place in unspecified non-institutional (private) residence as the place of occurrence of the external cause; Y93.89 Activity, other specified; Y99.8 Other external cause status
CPT/HCPCS: 36415; 36600; 37191; 70450; 71045; 71270; 72125; 72190; 73503; 73552; 73590; 74176; 80048; 80053; 81001; 82435; 82550; 82803; 82947; 82948; 83605; 83735; 83880; 84132; 84145; 84295; 84439; 84443; 84481; 84484; 85018; 85025; 85027; 85378; 85610; 85730; 86850; 86900; 86901; 87040; 87077; 87088; 87186; 93005; 93306; 93970; 99156; 99157; C1769; G0378; J0282; J0330; J0696; J1100; J1170; J1200; J1644; J1953; J2001; J2175; J2250; J2371; J2405; J2704; J2710; J2795; J3010; J3490; J7060; J7120; P9046; P9047; Q0163; Q9967; A4215; A4216; A4221; A4222; A4223; A4600; C1880; C1894; C9132